=== PATIENT | female | born 1940 | race Caucasian/White ===

== ENCOUNTER 2016-08-15 19:44 | Emergency (ER) | payer MEDICARE, OTHER ==
[~2016-08-15] VITALS: Ht 165.1 cm; Wt 67.7 kg
[~2016-08-15 19:44] MED LIST: ACET-2902 PO; ASPI81 PO; BISA10S PR; CLON.1 PO; DSS100 PO; ENOX30DI5 SQ; HYDR-3965 PO; LEVO88TA4 PO; LISI-662 PO; LORA2TAB2 PO; METO25 PO; MOM30 PO; PANT40TA25 PO; RIVA20TA PO; VITAD1000 PO; [UNRECOGNIZED DRUG - CODE] PO
[2016-08-15] MEDS ORDERED: DOCU250C91 PO (20:22)
[2016-08-15] MEDS ORDERED: CLON0.1T PO (20:22)
[2016-08-15] MEDS ORDERED: SIMV20TA6 PO (20:22)
[2016-08-15] MEDS ORDERED: AMIT100T2 PO (20:22)
[2016-08-15] MEDS ORDERED: AMLO10TA55 PO (20:22)
[2016-08-15] MEDS ORDERED: LISI-618 PO (20:22)
[2016-08-15] MEDS ORDERED: METO25 PO (20:22)
[2016-08-15] MEDS ORDERED: ALLO100T PO (20:22)
[2016-08-15] MEDS ORDERED: LEVO88TA7 PO (20:22)
[2016-08-15] MEDS ORDERED: ASPI-556 PO (20:22)
[2016-08-15] MEDS ORDERED: MORPHINE SULFATE 4 MG/ML SYRINGE IVP ONE (20:45)
[2016-08-15] MEDS ORDERED: ONDANSETRON HCL 4 MG/2 ML VIAL IVP ONE (20:45)
[2016-08-15 21:06] VITALS: BP 136/76
[2016-08-15 21:38] LABS: BASOPHILS # (AUTO) 0.03 K/uL (0.00-0.20); BASOPHILS % (AUTO) 0.3 % (0.0-2.0); EOSINOPHILS # (AUTO) 0.03 K/uL (0.00-0.70); EOSINOPHILS % (AUTO) 0.25 % (1.0-6.0); HEMATOCRIT 42.6 % (36-46); HEMOGLOBIN 14.3 g/dL (12.0-16.0); LYMPHOCYTES # (AUTO) 1.7 K/uL (1.0-4.8); LYMPHOCYTES % (AUTO) 15.9 % (22.0-44.0); MEAN CORPUSCULAR HEMOGLOBIN 34.5 pg (26.0-34.0); MEAN CORPUSCULAR HGB CONC 33.7 G/dL (31.0-37.0); MEAN CORPUSCULAR VOLUME 102 fL (80-100); MONOCYTES # (AUTO) 0.8 K/uL (0.1-1.0); MONOCYTES % (AUTO) 7.5 % (2.0-9.0); NEUTROPHILS # (AUTO) 8.3 K/uL (1.8-7.7); NEUTROPHILS % (AUTO) 76.1 % (40.0-70.0); PLATELET COUNT (AUTO) 211 K/uL (150-450); RED BLOOD CELL COUNT(AUTO) 4.16 MIL/uL (4.00-5.20); RED CELL DISTRIBUTION WIDTH 16.1 % (11.5-14.5); WHITE BLOOD COUNT (AUTO) 10.9 K/uL (4.5-11.0)
[2016-08-15 21:48] LABS: ANION GAP 8 mmol/L (8-16); CALCIUM, TOTAL 9.4 mg/dL (8.8-10.5); CARBON DIOXIDE 29 mmol/L (22-29); CHLORIDE 104 mmol/L (98-107); CREATININE 1.35 mg/dL (0.60-1.30); GLOMERULAR FILTR. RATE CALC 38 mL/min (>60); POTASSIUM 3.7 mmol/L (3.5-5.1); SODIUM SERUM 141 mmol/L (136-145); UREA NITROGEN, BLOOD 16 mg/dL (7-18)
[2016-08-15 21:58] LABS: RBC MORPHOLOGY COMMENT ABNORMAL RBC MORPH
[2016-08-15 22:00] LABS: B-TYPE NATRIURETIC PEPTIDE 122 pg/mL (0-100)
[2016-08-15 22:13] LABS: ALANINE AMINOTRANSFERASE 30 U/L (12-78); ALBUMIN 3.7 g/dL (3.4-5.0); ASPARTATE AMINOTRANSFERASE 26 U/L (15-37); BILIRUBIN,TOTAL 0.4 mg/dL (0.1-1.0); CREATINE KINASE MB 1.6 ng/mL (0-5); CREATINE KINASE, TOTAL 76 U/L (26-192); TOTAL PROTEIN, SERUM 7.7 g/dL (6.4-8.2)
[2016-08-15 22:37] LABS: APPEARANCE,URINE CLEAR (CLEAR); GLUCOSE, URINE (UA) NEGATIVE (NEGATIVE); KETONES,URINE NEGATIVE (NEGATIVE); LEUKOCYTE ESTERASE ,URINE NEGATIVE (NEGATIVE); OCCULT BLOOD,URINE NEGATIVE (NEGATIVE); PH,URINE 7.5 (5.0-8.0); PROTEIN,URINE TRACE (NEGATIVE)
[2016-08-15 22:47] LABS: ADD UA MICROSCOPIC NO
== END 2016-08-15 23:01 | disposition home or self-care (01) ==
LOC: EMS 19:45
DX: S70.02XA Contusion of left hip, initial encounter (principal); I10 Essential (primary) hypertension; F17.210 Nicotine dependence, cigarettes, uncomplicated; F12.90 Cannabis use, unspecified, uncomplicated; Z79.82 Long term (current) use of aspirin; W19.XXXA Unspecified fall, initial encounter; Y93.89 Activity, other specified; Y92.89 Other specified places as the place of occurrence of the external cause; Y99.8 Other external cause status
CPT/HCPCS: 36415; 71010; 72170; 73503; 80053; 81003; 82550; 82553; 83880; 84484; 85025; 93005; 96374; 96375; 99285; J2270; J2405